=== PATIENT | female | born 1980 | race Caucasian/White ===

== ENCOUNTER → 2019-01-01 | Outpatient (CLI) | payer OTHER ==
--- NOTE | 2019-01-01 11:25 | REP ---
BILATERAL MAMMOGRAM, BASELINE STUDY: No family history of breast cancer. Tyrer-zi lifetime risk of breast cancer 8.6%. Breast parenchyma is moderately dense in a heterogeneous pattern. I suspect that there is a well-circumscribed nodule medially in the right breast approximately 1.2 cm in diameter. I also suspect a well-circumscribed nodule medially in the left breast approximately 9 mm. No clustered microcalcifications are seen. IMPRESSION: BIRADS 0: BI-RADS/ACR category 0 mammogram, Incomplete: Need additional imaging evaluation and/or prior mammograms for comparison. I suspect a well-circumscribed nodule in the medial aspect of the each breast, as discussed in detail above. Recommend spot compression views and ultrasound to further evaluate. ACR 0 incomplete. This mammogram was interpreted with the aid of an FDA-approved computer-aided detection system. The patient states that she or he has not had a clinical breast exam in over a year. The patient letter being requested is M0. Electronically Signed by Natanael Mora MD 01/03/2019 10:20 A
== END ==
LOC: M RAD 09:20
PROVIDERS: ATTEND Student in an Organized Health Care Education/Training Program
DX: R92.2 Inconclusive mammogram (principal)

== ENCOUNTER → 2019-01-19 | Outpatient (CLI) | payer OTHER ==
--- NOTE | 2019-01-19 16:47 | REP ---
Digital diagnostic bilateral mammography with CAD and focused bilateral breast sonography: History: Screening study from January 01, 2019 is BIRADS category zero because of a nodular opacities projecting bilaterally. Well-circumscribed. Diagnostic imaging recommended. No remote prior mammography. Findings: Magnified focal spot compression CC, true mediolateral, and MLO views are obtained. The two adjacent well-circumscribed nodule seen inferiorly and medially in the right breast are confirmed. They are relatively low density and have well circumscribed margins. There is a 9 mm opacity projecting in the medial breast on the left CC view. This cannot be seen with confidence on the MLO or true MLO projection images. Sonographic findings: The right breast is scanned inferiorly and medially from 2 o'clock to 4 o'clock. Heterogeneous fibroglandular background echotexture is seen. 3 o'clock there are two cysts adjacent one another measuring 1.1 x 0.6 x 0.8 cm and 1.4 x 1.2 x 0.6 cm. These are located 3.4 cm from the nipple and they are felt to account for the mammographic opacity in the right breast. The left breast is scanned from 6 clock to 12 o'clock medially. Heterogeneous fibroglandular echotexture is seen. At 8 o'clock there is a 9 x 6 x 8 mm cyst. At 11 o'clock there is a 5 x 4 x 6 mm cyst. This is located 3 cm from the nipple and it is felt to account for the mammographic opacity. No suspicious sonographic finding is seen on either side. Impression: BIRADS category II benign findings. Simple cyst observed bilaterally producing mammographic opacities. Repeat screening mammography recommended 1 year. This mammogram was interpreted with the aid of an FDA-approved computer-aided detection system. The patient states that she has not had a clinical breast exam in over a year. The patient letter being requested is m 1 . Electronically Signed by Fco Crenshaw MD 01/19/2019 05:13 P
== END ==
LOC: M RAD 11:01
PROVIDERS: ATTEND Student in an Organized Health Care Education/Training Program
DX: N60.01 Solitary cyst of right breast (principal); N60.02 Solitary cyst of left breast